=== PATIENT | female | born 1965 | race American Indian/Alaskan Native ===

== ENCOUNTER 2016-10-28 09:32 | Outpatient (CLI) | payer BC ==
--- NOTE | 2016-10-29 10:41 | Mammography Report ---
BILATERAL DIGITAL SCREENING MAMMOGRAM with CAD: 10/28/16 09:32:00 CLINICAL: Routine screening. COMPARISON:[facility] 09/22/13 FINDINGS: The breasts are almost entirely fatty. No mass, architectural distortion or suspicious calcifications. IMPRESSION: No mammographic evidence of malignancy. BI-RADS CATEGORY: 1 - - Negative RECOMMENDATION: Routine mammographic screening in one year. COMMENT: Patient follow-up letters are generated by our [employer] application.
--- NOTE | 2016-10-29 11:00 | Mammography Report ---
BONE DEXA:10/28/16 09:32:00 CLINICAL: Postmenopausal. No comparison. TECHNIQUE: Two site bone DEXA performed on an Hologic scanner. FINDINGS: The average BMD of the lumbar spine L1-L4 is 1.260g/cm squared with a T-score of +1.0 and a Z-score of +1.8. The average BMD of the left hip is 1.294g/cm squared with a T-score of +1.7 and a Z-score of +1.9. IMPRESSION: WHO classification: Normal with average fracture risk based on both spine and left hip measurements. RECOMMENDATION: Clinical correlation and routine screening. DEFINITIONS: BMD = Bone Mineral Density T-score = BMD related to mean peak bone mass of young adult (mean expressed in Standard Deviation) Z-score = Age matched BMD expressed in SD World Health Organization (WHO) Diagnostic Criteria Normal T-score > -1 SD Osteopenia T-score between -1 and -2.4 SD Osteoporosis T-score -2.5 SD or below NOTE: BMD is not the only risk factor for fracture. One should also consider factors such as the patient's age, risk of falling, previous osteoporotic fracture, family history of osteoporotic fractures, current smoker, and low body weight. Z-scores are not calculated if >80 years of age.
== END 2016-10-28 09:33 | disposition home or self-care (01) ==
LOC: SPVWC 09:32
PROVIDERS: ATTEND Internal Medicine
DX: Z13.820 Encounter for screening for osteoporosis (principal); Z78.0 Asymptomatic menopausal state
CPT/HCPCS: 77080; G0202; 77067

== ENCOUNTER 2018-03-14 08:53 | Outpatient (CLI) | payer BC ==
--- NOTE | 2018-03-14 10:18 | XRay Report ---
XRAY RIGHT KNEE 4 THREE VIEWS: 03/14/18 CLINICAL: Knee pain. FINDINGS: No fracture or dislocation. Osteoarthritis with near-complete loss of the medial joint space with small osteophytes. The lateral joint spaces preserved with moderate size osteophytes. Patellofemoral joint osteoarthritis with superior and inferior osteophytes. Enthesophytes at the quadriceps insertion, proximal patella tendon insertion and at the lateral femoral condyle. No joint effusion.Normal soft tissues. IMPRESSION: Moderate osteoarthritis with greater involvement of the medial joint. Enthesopathy.
== END 2018-03-14 08:54 | disposition home or self-care (01) ==
LOC: SPVIMAG 08:53
PROVIDERS: ATTEND Orthopaedic Surgery Sports Medicine
DX: M17.11 Unilateral primary osteoarthritis, right knee (principal); M76.891 Other specified enthesopathies of right lower limb, excluding foot